=== PATIENT | female | born 1990 | race Caucasian/White ===

== ENCOUNTER 2022-07-27 19:27 | Outpatient (CLI) | payer MEDICAID, SELFPAY ==
[2022-07-27 20:34] LABS: Cholesterol* 168 mg/dL (90-199); Glucose* 84 mg/dL (60-115); HDL Cholesterol* 48 mg/dL (>=50); LDL Cholesterol Calculated 103 mg/dL (<100); Triglycerides* 85 mg/dL (40-149)
[2022-07-27 20:53] LABS: Vitamin D 25 Hydroxy* 29 ng/mL (30-80)
== END 2022-07-27 19:28 | disposition home or self-care (01) ==
PROVIDERS: Visit Provider Registered Nurse
DX: Z01.419 Encounter for gynecological examination (general) (routine) without abnormal findings (principal); F32.A Depression, unspecified; F41.9 Anxiety disorder, unspecified; Z13.1 Encounter for screening for diabetes mellitus; Z13.6 Encounter for screening for cardiovascular disorders
CPT/HCPCS: 80061; 82306; 82947; 84443

== ENCOUNTER 2022-08-31 18:17 | Outpatient (CLI) | payer MEDICAID, SELFPAY ==
[2022-08-31 23:00] LABS: Chlamydia DNA Amplified* NOT DETECTED (No Detected); GC DNA Amplified* NOT DETECTED (No Detected)
== END 2022-08-31 18:18 | disposition home or self-care (01) ==
LOC: NFLDREF 18:18
PROVIDERS: Visit Provider Registered Nurse
DX: Z11.3 Encounter for screening for infections with a predominantly sexual mode of transmission (principal)
CPT/HCPCS: 87491; 87591

== ENCOUNTER 2025-02-12 14:20 | Outpatient (CLI) | payer OTHER, SELFPAY | END 2025-02-12 14:21 | disposition home or self-care (01) | LOC: NFLDREF 14:21 | PROVIDERS: Visit Provider Registered Nurse | DX: Z01.419 Encounter for gynecological examination (general) (routine) without abnormal findings (principal); Z13.29 Encounter for screening for other suspected endocrine disorder | CPT/HCPCS: 84443 ==